=== PATIENT | female | born 1945 | race Caucasian/White ===

== ENCOUNTER → 2018-03-17 | Outpatient (CLI) | payer MEDICARE, OTHER ==
[~2018-03-17] MED LIST: ALBU90OI INH; AMOCLA875 PO; AZIT250 PO; Accuretic 10-11 EACH PO; Adult Low Dose81 MG PO; Augmentin 875-1 EACH PO; CETI5 PO; CHOL10002; COMPOUND THYROID; Calcium 600 +1 EAC1 PO; Cipro500 MG PO; DESL5 PO; DHEA PO; ESTRIOL/TEST VAG; FISH1000 PO; FLUC150A PO; FLUO.01TC; FLUO.05TO TOP; Flagyl500 MG PO; IPRA.03NI; LAVAP17G PO; LEVSOD100 PO; LIOT5 PO; MAGCHL64ER; MELA3 PO; MOMENI; Multiple Vitam1 EAC1 PO; OMEP20ER PO; PRAV20 PO; PROGESTERONE M100 GM MC; Percocet 5-3251 EACH PO; TRAZ50; TRAZ50 PO; Ultram50 MG PO; Veramyst10 GM NS; Vitamin C100 M1 PO; Zofran4 MG PO
== END ==
LOC: LAB SHORT 07:28 → PLD 07:28
DX: D22.71 Melanocytic nevi of right lower limb, including hip (principal)
CPT/HCPCS: 88305

== ENCOUNTER 2019-06-15 06:40 | Day surgery (SDC) | payer MEDICARE, OTHER ==
[~2019-06-15] VITALS: Ht 162.6 cm; Wt 72.7 kg
[~2019-06-15 06:40] MED LIST changes: +Atrovent Inha12.9 GM; +DICLOFENAC SOD100 G1; +FURO20; +LEVO-T88 MCG; +METO25; +POTA10T
[2019-06-15] MEDS ORDERED: HYDCHL12.5 PO (07:33)
[2019-06-15] MEDS ORDERED: QUIN10 PO (07:33)
--- NOTE | 2019-06-15 08:09 | NUR ---
06/15/19 0809 Joanna Solano PT UP TO RESTROOM WITH SBA.
--- NOTE | 2019-06-15 09:05 | NUR ---
06/15/19 0905 April Moran INTRTASCALING BLOCK COMPLETED IN OR WITHOUT DIFFICULTY. PT NOTED TO HAVE A SMAL HEALING ABRASION ON DORSAL ASPECT OF LEFT WRIST. NO OPEN SKIN NOTED.
--- NOTE | 2019-06-15 10:05 | NUR ---
06/15/19 1005 Vanessa Mcdermott O2 REMOVED AT 1005 SATS 97%, DEEP BREATHES AND COUGHS ON COMAND
--- NOTE | 2019-06-15 11:35 | NUR ---
06/15/19 Vanessa Haro ALL INSTRUCTIONS WERE GIVEN AND DEMOS WITH RETURN DEMOS COPIES IN FOLDER. VALENCIA PK ON . I.S. WITH DEMO. PT AMBULATED WITH ASSIST TO BR AND VOIDED QS YELLOW URINE. BACK TO ROOM WITHOUT INCIDENT
== END 2019-06-15 11:30 | disposition home or self-care (01) ==
LOC: ORSCSDS 06:40
PROVIDERS: Orthopaedic Surgery
PROC: 0LQ24ZZ Repair Left Shoulder Tendon, Percutaneous Endoscopic Approach (ICD-10-PCS; principal; 2019-06-15 08:00)
PROC: 0RNK4ZZ Release Left Shoulder Joint, Percutaneous Endoscopic Approach (ICD-10-PCS; principal; 2019-06-15 08:00)
PROC: 0LS24ZZ Reposition Left Shoulder Tendon, Percutaneous Endoscopic Approach (ICD-10-PCS; principal; 2019-06-15 08:00)
DX: M75.102 Unspecified rotator cuff tear or rupture of left shoulder, not specified as traumatic (principal); M75.22 Bicipital tendinitis, left shoulder; M75.52 Bursitis of left shoulder; I10 Essential (primary) hypertension; E03.9 Hypothyroidism, unspecified; Z79.899 Other long term (current) drug therapy
CPT/HCPCS: 82947; C1713; J0171; J0690; J1100; J2250; J2310; J2370; J2405; J2704; J2710; J3010; J7120

== ENCOUNTER 2019-07-24 06:53 | Emergency (ER) | payer MEDICARE, OTHER ==
[~2019-07-24] VITALS: Ht 162.6 cm; Wt 71.7 kg
[~2019-07-24 06:53] MED LIST changes: +HYDCHL12.5 PO; +QUIN10 PO
[2019-07-24 08:05] LABS: BASOPHILS ABSOLUTE AUTO 0.06 K/mm3 (0.00-0.23); BASOPHILS PERCENT AUTO 1 % (0-2); EOSINOPHILS ABSOLUTE AUTO 0.23 K/mm3 (0.00-0.68); EOSINOPHILS PERCENT AUTO 2 % (0-6); Hematocrit 41.8 % (33.0-51.0); Hemoglobin 14.3 g/dL (11.5-16.0); IMMATURE GRAN ABSOLUTE AUTO 0.03 K/mm3 (0.00-0.10); IMMATURE GRAN PERCENT AUTO 0 % (0-1); LYMPHOCYTES ABSOLUTE AUTO 1.98 K/mm3 (0.84-5.20); LYMPHOCYTES PERCENT AUTO 15 % (21-46); MONOCYTES ABSOLUTE AUTO 1.15 K/mm3 (0.16-1.47); MONOCYTES PERCENT AUTO 9 % (4-13); Mean Corpuscular HGB 30.6 pg (26.0-34.0); Mean Corpuscular HGB Conc 34.2 g/dL (31.5-36.5); Mean Corpuscular Volume 90 fL (80-100); Mean Platelet Volume 9.9 fL (9.1-12.4); NEUTROPHILS ABSOLUTE AUTO 9.62 K/mm3 (1.96-9.15); NEUTROPHILS PERCENT AUTO 74 % (41-73); Platelet Count 268 K/mm3 (150-400); RDW Coefficient Variation 11.8 % (11.7-14.2); RDW Standard Deviation 38.1 fL (35.1-46.3); Red Blood Cell Count 4.67 M/mm3 (3.80-5.20); White Blood Cell Count 13.07 K/mm3 (4.00-11.30)
[2019-07-24 08:30] LABS: Alanine Aminotransfer (ALT/SGP 42 U/L (12-78); Albumin, Blood 3.5 g/dL (3.4-5.0); Albumin/Globulin Ratio 0.9 (0.8-1.8); Alk Phos 46 U/L (50-136); Anion Gap 6 mmol/L (6-16); Aspartate Aminotrans (AST/SGOT 21 U/L (12-37); Bilirubin, Total 0.6 mg/dL (0.1-1.0); Blood Urea Nitrogen 18 mg/dL (8-24); Bun/Creatinine Ratio 23.4 (12.0-20.0); CO2, Blood 27 mmol/L (21-32); Chloride, Blood 104 mmol/L (98-108); Creatinine, Blood 0.77 mg/dL (0.40-1.00); Globulin, Blood 3.9 g/dL (2.2-4.0); Glomerular Filtration Rate >60 (60-); Glucose, Blood 106 mg/dL (70-99); Potassium, Blood 3.6 mmol/L (3.5-5.5); Sodium, Blood 137 mmol/L (136-145); Total Protein, Blood 7.4 g/dL (6.4-8.2)
[2019-07-24 08:34] LABS: Source, Urine Clean Catch
[2019-07-24 08:40] LABS: Appearance, Urine Clear (Clear); Bilirubin, Urine Neg (Neg); Blood, Urine Neg (Neg); Color, Urine Yellow (P-Yellow); Glucose Qualitative, Urine Neg (Neg); Ketones, Urine Neg (Neg); Leukocyte Esterase, Urine 1+ (Neg); Nitrite, Urine Neg (Neg); Protein, Urine Neg (Neg); Specific Gravity, Urine 1.025 (1.003-1.022); Urobilinogen, Urine NORM (Normal)
[2019-07-24 08:50] LABS: Red Blood Cells, Urine 0-2 /hpf (0-2)
[2019-07-24 08:51] LABS: Bacteria Rare /hpf; Squamous Epithelial Cells Not Seen /hpf (Few)
[2019-07-24] MEDS ORDERED: Augmentin 875-1 EACH PO (09:24)
== END 2019-07-24 10:05 | disposition home or self-care (01) ==
LOC: ER 06:53
PROVIDERS: Emergency Medicine
DX: K57.32 Diverticulitis of large intestine without perforation or abscess without bleeding (principal); Z79.899 Other long term (current) drug therapy
CPT/HCPCS: 36415; 74177; 80053; 81001; 83690; 85025; 87086; 96374-59; 99284-25; J1885; J7120; Q9967

== ENCOUNTER → 2020-06-20 | Outpatient (CLI) | payer MEDICARE, OTHER | END | disposition home or self-care (01) | LOC: LAB SHORT 08:05 → PLD 08:05 | DX: D04.39 Carcinoma in situ of skin of other parts of face (principal) | CPT/HCPCS: 88305 ==

== ENCOUNTER → 2021-12-22 | Outpatient (CLI) | payer MEDICARE, OTHER ==
[2021-12-22 15:45] LABS: BASOPHILS ABSOLUTE AUTO 0.06 K/mm3 (0.00-0.23); BASOPHILS PERCENT AUTO 1 % (0-2); EOSINOPHILS ABSOLUTE AUTO 0.15 K/mm3 (0.00-0.68); EOSINOPHILS PERCENT AUTO 1 % (0-6); Hematocrit 41.4 % (33.0-51.0); Hemoglobin 14.1 g/dL (11.5-16.0); IMMATURE GRAN ABSOLUTE AUTO 0.03 K/mm3 (0.00-0.10); IMMATURE GRAN PERCENT AUTO 0 % (0-1); LYMPHOCYTES ABSOLUTE AUTO 2.19 K/mm3 (0.84-5.20); LYMPHOCYTES PERCENT AUTO 20 % (21-46); MONOCYTES ABSOLUTE AUTO 0.96 K/mm3 (0.16-1.47); MONOCYTES PERCENT AUTO 9 % (4-13); Mean Corpuscular HGB 30.9 pg (26.0-34.0); Mean Corpuscular HGB Conc 34.1 g/dL (31.5-36.5); Mean Corpuscular Volume 91 fL (80-100); Mean Platelet Volume 11.1 fL (9.1-12.4); NEUTROPHILS ABSOLUTE AUTO 7.39 K/mm3 (1.96-9.15); NEUTROPHILS PERCENT AUTO 69 % (41-73); Platelet Count 265 K/mm3 (150-400); RDW Standard Deviation 39.8 fL (35.1-46.3); Red Blood Cell Count 4.57 M/mm3 (3.80-5.20); White Blood Cell Count 10.78 K/mm3 (4.00-11.30)
[2021-12-22 16:05] LABS: C-REACTIVE PROTEIN, EXT RANGE 2.29 mg/dL (0.000-0.300)
[2021-12-22 16:08] LABS: Uric Acid, Blood 3.5 mg/dL (2.6-6.0)
== END ==
LOC: LAB SHORT 15:00 → LAB 15:00
PROVIDERS: Physician Assistant
DX: M13.831 Other specified arthritis, right wrist (principal); R22.31 Localized swelling, mass and lump, right upper limb
CPT/HCPCS: 84550; 85025; 85651; 86140

== ENCOUNTER → 2022-12-24 | Outpatient (CLI) | payer MEDICARE, OTHER ==
[2022-12-24 12:19] LABS: Source, Urine Clean Catch
[2022-12-24 15:47] LABS: Appearance, Urine Turbid (Clear); Bilirubin, Urine Neg (Neg); Blood, Urine 5+ (Neg); Color, Urine Amber (P-Yellow); Glucose Qualitative, Urine Neg (Neg); Ketones, Urine Neg (Neg); Leukocyte Esterase, Urine 3+ (Neg); Nitrite, Urine Neg (Neg); Protein, Urine 3+ (Neg); Urobilinogen, Urine NORM (Normal)
[2022-12-24 16:04] LABS: Bacteria Many /hpf; Mucus Light (0-Heavy); Red Blood Cells, Urine TNTC /hpf (0-2); Squamous Epithelial Cells Few /hpf (Few); Transitional Epithelial Cells Rare /hpf (0-Rare); White Blood Cells, Urine TNTC /hpf (0-5)
== END ==
LOC: LAB 12:17 → LAB SHORT 12:17
PROVIDERS: Internal Medicine
DX: R30.0 Dysuria (principal); E03.9 Hypothyroidism, unspecified
CPT/HCPCS: 81001